=== PATIENT | female | born 1990 | race Caucasian/White ===

== ENCOUNTER 2018-10-17 20:09 | Emergency (ER) | payer MEDICAID ==
[~2018-10-17] VITALS: Ht 165.1 cm; Wt 72.0 kg
[~2018-10-17 20:09] MED LIST: CLIN-96 PO; DIAZ5TAB PO; NAPR-1154 PO; NO HOME MEDS
[2018-10-17 20:26] VITALS: BP 113/36
== END 2018-10-17 23:54 | disposition left against medical advice (07) ==
LOC: ER 20:10
DX: K08.89 Other specified disorders of teeth and supporting structures (principal); Z53.21 Procedure and treatment not carried out due to patient leaving prior to being seen by health care provider

== ENCOUNTER 2019-04-14 07:49 | Emergency (ER) | payer MEDICAID ==
[~2019-04-14] VITALS: Ht 165.1 cm; Wt 150.0 kg
[~2019-04-14 07:49] MED LIST changes: +CLIN-90 PO; -CLIN-96 PO
[2019-04-14 07:52] VITALS: BP 124/78
[2019-04-14] MEDS ORDERED: PENI250T2 PO (07:59)
[2019-04-14] MEDS ORDERED: ketorolac trometh inj. 60 MG/2 ML VIAL IM ONE (08:00)
== END 2019-04-14 08:06 | disposition home or self-care (01) ==
LOC: ER 07:50
DX: K08.89 Other specified disorders of teeth and supporting structures (principal); Z88.1 Allergy status to other antibiotic agents; Z79.899 Other long term (current) drug therapy
CPT/HCPCS: 96372; 99283; J1885

== ENCOUNTER 2020-07-08 05:13 | Emergency (ER) | payer BC, MEDICAID ==
[~2020-07-08] VITALS: Ht 165.1 cm; Wt 81.8 kg
[~2020-07-08 05:13] MED LIST changes: -CLIN-90 PO; +CLIN-97 PO
[2020-07-08 05:14] VITALS: BP 125/85
[2020-07-08] MEDS ORDERED: HYDR-3964 PO (05:26)
[2020-07-08] MEDS ORDERED: ONDA4TAB6 PO (05:26)
[2020-07-08] MEDS ORDERED: acetaminophen 325mg tablet PO ONE (05:30)
[2020-07-08] MEDS ORDERED: ibuprofen tablet 400 MG TABLET PO ONE (05:30)
== END 2020-07-08 06:02 | disposition home or self-care (01) ==
LOC: ER 05:14
DX: S43.401A Unspecified sprain of right shoulder joint, initial encounter (principal); M25.511 Pain in right shoulder; Z87.440 Personal history of urinary (tract) infections; Z98.890 Other specified postprocedural states; Z88.1 Allergy status to other antibiotic agents; Z79.2 Long term (current) use of antibiotics; Z79.899 Other long term (current) drug therapy; W01.0XXA Fall on same level from slipping, tripping and stumbling without subsequent striking against object, initial encounter; Y93.89 Activity, other specified; Y92.89 Other specified places as the place of occurrence of the external cause; Y99.8 Other external cause status
CPT/HCPCS: 29105; 73030; 99284

== ENCOUNTER 2020-12-04 13:47 | Emergency (ER) | payer BC, OTHER ==
[~2020-12-04] VITALS: Ht 165.1 cm; Wt 91.5 kg
[~2020-12-04 13:47] MED LIST changes: +ONDA4TAB6 PO
[2020-12-04 14:14] VITALS: BP 108/60
[2020-12-04] MEDS ORDERED: DOXY100C43 PO (14:39)
== END 2020-12-04 14:56 | disposition home or self-care (01) ==
LOC: EEVIPCON 13:51 → ER 13:51
DX: L03.116 Cellulitis of left lower limb (principal); Z88.1 Allergy status to other antibiotic agents; Z79.899 Other long term (current) drug therapy
CPT/HCPCS: 99283

== ENCOUNTER → 2021-03-28 | Emergency (ER) | payer BC ==
[~2021-03-28] VITALS: Ht 165.1 cm; Wt 86.4 kg
[~2021-03-28] MED LIST changes: +CLIN150C2 PO
[2021-03-28 05:59] VITALS: BP 127/72
== END | disposition home or self-care (01) ==
LOC: ER 05:10
DX: L02.416 Cutaneous abscess of left lower limb (principal); Z79.2 Long term (current) use of antibiotics; Z79.899 Other long term (current) drug therapy; Z87.440 Personal history of urinary (tract) infections
CPT/HCPCS: 99283

== ENCOUNTER 2024-11-02 13:00 | Emergency (ER) | payer MEDICAID, OTHER ==
[~2024-11-02] VITALS: Ht 165.1 cm; Wt 97.7 kg
[~2024-11-02 13:00] MED LIST changes: -CLIN150C2 PO
[2024-11-02 13:18] VITALS: BP 130/91; PULSE 94; RESP 16; TEMP 98.2; O2SAT 98
--- NOTE | 2024-11-02 14:34 | Physician Documentation ---
History of Present Illness ~ Chief Complaint: Cold, cough & congestion Stated Complaint: FLU LIKE SYMPTOMS Time Seen by MD: 14:26 Primary Medical Doctor: PATIENT DENIES PMD HPI This is a 34-year-old female who presents with three days of nonproductive c ough, fever, body aches, malaise, sore throat, and nasal congestion. Reports no history of pneumonia or respiratory illness. Medication Reconciliation Allergies: Coded Allergies: cephalexin (Verified Allergy, Unknown, rash, 11/02/24) Scheduled Clindamycin HCL* (Clindamycin HCL*), 1 CAP PO Q6H Diazepam (Valium), 1 TAB PO TID PRN Naproxen (Naprosyn), 1 TABLET PO BID Ondansetron Hcl (Zofran), 1 TAB PO Q6H Miscellaneous Medications Home Med List (No Home Medications), (Reported) Past Medical History Past Medical History: UTI Past Surgical History: other Other Past Surgical History: pilonidal cyst surgery Alcohol Use: None Drug Use: none Lives with: Family Lives In: Home Occupation: employed Review of Systems ROS Cough, nasal congestion, sore throat as stated above in the HPI, otherwise all systems are reviewed and negative. Physical Exam Vital Signs: Temperature: 98.2, Heart Rate: 94, Respiratory Rate: 16, BP: 130/91, Pulse Oximetry: 98, Weight: 97.700 Oxygen Flow Rate: 0 Physical Exam VITALS: Reviewed and as above. GENERAL: Alert, nontoxic appearing, no apparent distress. HEENT: TMs clear bilaterally normal exam, PERRLA, conjunctiva noninjected, oropharynx erythematous without tonsillar swelling, patches, or exudates, uvula midline. No cervical lymphadenopathy. RESPIRATORY: No increased work of breathing, no respiratory distress, speaking in full clear sentences, clear lung sounds in all moeller CV: Regular rate and rhythm no murmur Progress Results/Orders Results/Orders Vital Signs 11/02/24 13:18 Temp 98.2 Pulse 94 Resp 16 B/P (MAP) 130/91 Pulse Ox 98 O2 Flow Rate 0 Laboratory Tests Test 11/02/24 13:21 11/02/24 13:27 Group A Streptococcus Rapid Negative SARS-CoV-2 Antigen (Rapid) Negative Medical Decision Making Findings This otherwise healthy and well appearing 34-year-old female presented with cough, nasal congestion, sore throat, malaise and body aches consistent with URI symptoms likely of viral etiology. Patient is otherwise well appearing, non- toxic, and well hydrated. Physical exam benign including clear lung sounds in all moeller, no respiratory distress or increased work of breathing. Vital signs stable without evidence of hypoxia, room air SpO2 of 98% interpreted as normal and adequate, non-tachypneic, non-tachycardic, normotensive. Antibiotics not indicated due to low suspicion for bacterial etiology. COVID test and rapid strep test ordered by nursing prior to exam were both negative. I have considered, but have a low clinical suspicion for: Pneumonia Cardiac origin Pneumothorax PE Asthma/COPD FB aspiration GERD Respiratory failure Meningitis Bacterial disease Strep pharyngitis Patient is appropriate for outpatient follow up and provided home care instructions and return to care precautions which she verbalized understanding of. Differential Dx:Considerations: Include: Allergic rhinitis, Otitis media, Pharyngitis-Diphtheria, Pharyngitis-Streptoccal, Pharyngitis-Viral, Pneumonia, Pnuemonitis, Sinusitis Departure Time of Disposition: 14:32 Disposition: HOME / SELF CARE / HOMELESS Impression: Primary Impression: Acute respiratory infection Condition: Improved Discharge Instructions: Upper Respiratory Infection, Adult Additional Instructions: Rest, stay well hydrated, cover your cough, and wash her hands. Use ibuprofen and or Tylenol as needed for pain and fever as directed by [id number] packaging. Warm fluids and honey may help with the cough as well. Please follow up with your primary care provider in the next few days. Please return to the emergency department for any new or worsening concerning symptoms including but not limited to difficulty breathing or a fever over 100.4 that does not lower with ibuprofen or Tylenol. Referrals: NO PRIMARY CARE PROVIDER (PCP) Education Educated: Patient Educated regarding: diagnosis, treatment, prognosis, need for follow up Signature Scribe Signature: No scribe Attestation: The note accurately reflects work and decisions made by me.ENID Sandoval 11/03/24 03:29 WANDA KING Nov 02, 2024 14:34
[2024-11-02 15:39] LABS: STREP A SCREEN NEGATIVE (Neg)
== END 2024-11-02 14:50 | disposition home or self-care (01) ==
LOC: ER 13:01
DX: J22 Unspecified acute lower respiratory infection (principal); Z88.1 Allergy status to other antibiotic agents; Z20.822 Contact with and (suspected) exposure to COVID-19
CPT/HCPCS: 36415; 87081; 87811; 87880; 99283